=== PATIENT | female | born 1985 | race African-American/Black ===

== ENCOUNTER 2019-12-13 00:27 | Outpatient (CLI) | payer BC, SELFPAY ==
[2019-12-13 18:11] LABS: SARS-CoV-2 RNA PCR Negative
== END 2019-12-13 00:28 | disposition home or self-care (01) ==
LOC: ANHCOVIDDT 00:28
PROVIDERS: Visit Provider Surgery Plastic and Reconstructive Surgery
DX: Z01.812 Encounter for preprocedural laboratory examination (principal); Z11.59 Encounter for screening for other viral diseases
CPT/HCPCS: 87635; C9803; U0003

== ENCOUNTER 2019-12-16 01:35 | Day surgery (SDC) | payer BC, SELFPAY ==
[2019-12-01 14:23] VITALS: BMI 38.6
[2019-12-16] VITALS (8 sets, daily range): BP systolic 109–147; BP diastolic 66–86; PULSE 63–86; RESP 14–18; TEMP 36.2–36.4; O2SAT 99–100
--- NOTE | 2019-12-16 09:07 | WPDHPUPDATE1 ---
History and Physical Update Update Date/Time: 12/16/19 09:07 History and Physical has been reviewed, including an updated exam of the patient. There are NO changes in the patient's condition. Risks, benefits, and alternatives have been discussed and questions answered. Patient agrees to proceed with procedure.
[2019-12-16 09:16] LABS: Urine Cotinine NEGATIVE
[2019-12-16] MEDS: LACTATED RINGERS 1,000 ML 30 ML IV CONT ×2 (09:27→12:46)
--- NOTE | 2019-12-16 09:35 | WPDANESEPPF ---
Anes - Initial Pre Proc Eval Procedure: Operation Date: 12/16/19 10:45 Proposed Procedures p Bilateral Breast Reduction - Dustin Stone MD Date/Time: 12/16/19 09:35 Surgeon: Dustin Stone MD Pre Op Diagnosis: Macromastia Patient Data Age: 34 Gender: F Height: 5 ft 4 in Weight: 102.06 kg Allergies Allergy/AdvReac Type Severity Reaction Status Date / Time latex Allergy Mild RASH Verified 12/16/19 09:34 phenobarbital Allergy Unknown UNKNOWN Verified 12/16/19 09:34 tramadol Allergy Unknown ITCHY Verified 12/16/19 09:34 Home Medications Medication Instructions Recorded Confirmed Type pantoprazole 40 mg tablet,delayed 40 mg PO DAILY PRN tablet 09/03/19 12/01/19 History release fexofenadine [Nevin Allergy] 180 mg PO DAILY 12/01/19 12/01/19 History fluticasone propionate [Flonase 1 spray INTRANASAL DAILY 12/01/19 12/01/19 History Allergy Relief] docusate sodium 100 mg capsule 100 mg PO BID #14 cap 12/03/19 Rx hydrocodone 5 mg-acetaminophen 325 1 tablet PO Q6H PRN #15 tablet 12/03/19 12/03/19 Rx mg tablet ondansetron HCl 4 mg tablet 4 mg PO Q6H PRN #30 tablet 12/03/19 Rx Laboratory Tests 12/16/19 08:50 Cotinine Negative Patient hx anesthesia problems: none Family hx anesthesia problems: none PMFSH Surgical History Surgical History History of ovarian cystectomy 05/2014 Social History Social History Smoking status: Never smoker Substance use: never Living arrangements: with family Spiritual care concerns: No Anes - Eval Final PreProcedure Day of Procedure 12/16/19 09:35 Patient weight: obese Heart: regular rate and rhythm Lungs: clear to auscultation Airway: Mallampati scale class II Neurological: alert and oriented Last oral intake: >/= 8 hours ASA classification: III Emergent: no Anesthetic plan: proceed Anesthesia type and monitoring: general ETT and standard monitoring Informed Consent: The patient's anesthetic plan and its attendant risks and benefits were discussed with the patient/family/POA. Questions were solicited and answers provided to the satisfaction of the patient/family/POA.
--- NOTE | 2019-12-16 10:01 | PM.PROC ---
Procedure Note - Detailed Date of procedure: 12/16/19 Pre-op diagnosis: Macromastia Post-op diagnosis: same Procedure performed: Bilateral Reduction Mammaplasty Description of procedure: She is here today for bilateral breast reduction. Previously and again today the risks, benefits, alternatives were discussed in extensive detail. I wanted her to be very realistic about the risks involved as well as expectations. We discussed aftercare and what to monitor for. She understands we can never guarantee final breast size and there will always be asymmetry. I was very upfront and honest about the risks of sensation change and even nipple loss (). After hearing all her options for nipple/areola management (risks, benefits, alternatives) she has elected to proceed with free nipple graft. She understand there will not be sensation, there will be permanent color change, and can even be complete loss of the nipple/areola. Made sure answered all of her questions to her satisfaction today and consent was obtained. She was marked in the preoperative holding area with their verification. The patient was taken to the operating room placed supine on the operating table. Anesthesia was provided by anesthesiology. She was prepped and draped in a standard sterile fashion. A surgical time-out was taken. Stab incisions were made and I tumessed with a tumescent solution. I marked out the nipple-areolar complex at 42 mm. I then removed and defatted. NAC was placed in saline soaked gauze. I then removed the inferior portion of the breast as well as the central keel to get shape based on preoperative planning. At this point copiously irrigated with saline solution and verified a strict hemostasis. I reapproximated the pillars using a 2-0 PDS as well as along the IMF. I tailor tacked the breast into place with marquise. She was placed in a sitting position. I verified the nipple-areolar complex position based on preoperative markings, intraoperative measurements, and observation which were in full agreement. This nipple-areolar complex was marked at 42 mm in size. I then placed supine and de-epithelialized this. Nipple-areolar complex was inset with 5-0 Chromic and a tie over xeroform / cotton bolster with 3-0 Nylon. I closed the vertical incision with 3-0 Monocryl in the IMF with 3-0 stratafix. Then everything was closed using a running subcuticular 4-0 Monocryl followed by Steri-Strips. A dressing was placed followed by surgical bra. Patient was awoke and taken to PACU without difficulty. All instrument sponge counts were correct at the end of the case. Anesthesia: GLMA Surgeon: Dustin Stone MD Estimated blood loss (mL): 40 Drains: No Packing: No Pathology: yes (Bilateral breast tissue) Complications: No immediate complications Condition: stable Disposition: PACU Findings: Inverted T bilateral free nipple graft. Right: 1609 grams Left: 1760 grams.
[2019-12-16] MEDS: ceFAZolin 2 GM/D5W 50 ML 2 GM/50 ML BAG IVPB (10:03)
--- NOTE | 2019-12-16 12:35 | SUR.OPER ---
EBL:50cc
== END 2019-12-16 14:45 | disposition home or self-care (01) ==
PROVIDERS: PCP Physician Assistant; Visit Provider Surgery Plastic and Reconstructive Surgery
PROC: 0HBV0ZZ Excision of Bilateral Breast, Open Approach (ICD-10-PCS; CPT 19318; principal; 2019-12-16 10:45)
DX: N62 Hypertrophy of breast (principal); N60.32 Fibrosclerosis of left breast; N60.42 Mammary duct ectasia of left breast; N60.02 Solitary cyst of left breast; L30.8 Other specified dermatitis; E66.9 Obesity, unspecified; Z68.38 Body mass index [BMI] 38.0-38.9, adult; Z79.899 Other long term (current) drug therapy
CPT/HCPCS: 19318; 36415; 80307; 88305; 88307; A9270; J0171; J0330; J0690; J1100; J2250; J2405; J2704; J2710; J3010; J7120; L8000

== ENCOUNTER 2021-04-01 14:07 | Emergency (ER) | payer OTHER, SELFPAY ==
[2021-04-01 14:20] VITALS: BP 97/55; PULSE 91; RESP 16; TEMP 37.2; O2SAT 99
--- NOTE | 2021-04-01 14:31 | ED.URI ---
HPI - URI/Sore Throat General Chief Complaint: Upper Respiratory Infection Stated Complaint: Sinus Pain Time Seen by Provider: 04/01/21 14:52 Source: patient and RN notes reviewed Mode of arrival: ambulatory Limitations: no limitations History of Present Illness HPI Narrative: Referral female with history of allergies and sinus problems presents with concern for 2 to 3-week history of sinus pain, facial pain and pressure, jaws popping, ears feeling full. Reports dizziness and increased facial pain when she bends over. Reports she has been using Tylenol sinus, Benadryl, takes Nevin and Flonase daily. Reports mild pressure relief with the Tylenol Sinus. She denies fever, body aches, chills, sweats, cough. MD elicited complaint: nasal congestion and sinus pain Related Data Home Medications Medication Instructions Recorded Confirmed pantoprazole 40 mg tablet,delayed 40 mg PO DAILY PRN tablet 09/03/19 04/01/21 release fexofenadine [Envin Allergy] 180 mg PO DAILY 12/01/19 04/01/21 fluticasone propionate [Flonase 1 spray INTRANASAL DAILY 12/01/19 04/01/21 Allergy Relief] Allergies Allergy/AdvReac Type Severity Reaction Status Date / Time latex Allergy Mild RASH Verified 04/01/21 14:20 phenobarbital Allergy Unknown UNKNOWN Verified 04/01/21 14:20 tramadol Allergy Unknown ITCHY Verified 04/01/21 14:20 Review of Systems Review of Systems: CONSTITUTIONAL: Denies malaise, chills, sweats, or fever. EYES: Denies visual changes, redness, or discharge. ENT: Reports rhinorrhea, congestion, sinus pain, otalgia. Denies sore throat. CARDIOVASCULAR: Denies chest pain, palpitations, or edema. RESPIRATORY: Denies cough. Denies dyspnea. GASTROINTESTINAL: Denies abdominal pain, nausea, vomiting, diarrhea SKIN: Denies rash or itching. MUSCULOSKELETAL: Denies myalgia. NEUROLOGIC: Denies headache. All systems reviewed & are unremarkable except as noted in HPI and below PMFSH Surgical History Surgical History History of ovarian cystectomy 05/2014 Social History Social History Smoking status: Never smoker Substance use: never Spiritual care concerns: No Comments At time of signature, agree with nursing past medical, surgical, social and family history. There is no relevant family history pertinent to the presenting complaint Exam Narrative: GENERAL: Well-appearing, well-nourished, and in no acute distress. HEAD: Normocephalic EYES: PERRLA, conjunctivae clear ENT: Nares clear, turbinates edematous and erythematous, sinus tenderness. Mucous membranes moist. TM pearly arreaga with dull light reflex bilaterally; no tragal tenderness. Oropharynx not erythematous without lesions. Tonsils not enlarged and without exudate, no drooling, no hoarseness, no trismus, uvula midline. NECK: Supple. No lymphadenopathy CHEST: Clear to auscultation, breath sounds equal. No wheezing, rhonchi, rales, or stridor. No respiratory distress, speaks in full sentences. HEART: Regular rate and rhythm. No murmur heard. SKIN: Warm, dry, no rash. NEURO: Alert and oriented x3. PSYCH: Normal mood and affect Course Course Emergency Course: Patient is aware of diagnosis, understands and agrees to treatment plan. Anticipatory guidance given. Patient agrees to follow-up as directed and is aware of reasons to seek care at the emergency department. Portions of this record may have been created with voice recognition software Vital Signs Vital signs: Vital Signs Temperature 98.9 F 04/01/21 14:20 Pulse Rate 91 04/01/21 14:20 Respiratory Rate 16 04/01/21 14:20 Blood Pressure 97/55 L 04/01/21 14:20 Pulse Oximetry 99 04/01/21 14:20 Temperature 98.9 F 04/01/21 14:20 Pulse Rate 91 04/01/21 14:20 Respiratory Rate 16 04/01/21 14:20 Blood Pressure 97/55 L 04/01/21 14:20 Pulse Oximetry 99 04/01/21 14:20 Reviewed.
== END 2021-04-01 15:06 | disposition home or self-care (01) ==
PROVIDERS: Emergency Provider Nurse Practitioner
DX: J01.90 Acute sinusitis, unspecified (principal); J45.909 Unspecified asthma, uncomplicated; E28.2 Polycystic ovarian syndrome
CPT/HCPCS: 99213; G0463

== ENCOUNTER 2021-07-16 13:35 | Emergency (ER) | payer OTHER, SELFPAY ==
[2021-07-16 13:46] VITALS: BP 137/75; PULSE 100; RESP 20; TEMP 37.4; O2SAT 98
[2021-07-16 13:53] VITALS: BP 137/75; PULSE 100; RESP 20; TEMP 37.4; O2SAT 98
--- NOTE | 2021-07-16 13:54 | ED.GENADULT ---
HPI - General Adult General Chief complaint: Upper Respiratory Infection Stated complaint: Chest Congestion/Cough Time Seen by Provider: 07/16/21 13:56 Source: patient Mode of arrival: ambulatory Limitations: no limitations History of Present Illness HPI narrative: 36-year-old female patient presents to the [facility] with complaints of a cough x2 days with shortness of breath. Patient does have history of asthma. Patient states she did just diagnosed with COVID in May 2021. Patient is fully vaccinated against COVID. Patient states she has been using her inhaler at home but is still feeling short of breath. Related Data Home Medications Medication Instructions Recorded Confirmed pantoprazole 40 mg tablet,delayed 40 mg PO DAILY PRN tablet 09/03/19 07/16/21 release fexofenadine [Nevin Allergy] 180 mg PO DAILY 12/01/19 07/16/21 fluticasone propionate [Flonase 1 spray INTRANASAL DAILY 12/01/19 07/16/21 Allergy Relief] albuterol 90 mcg INHALATION Q4H PRN 07/16/21 07/16/21 vit [id number] 1 tablet PO DAILY 07/16/21 07/16/21 [Alive ] Allergies Allergy/AdvReac Type Severity Reaction Status Date / Time latex Allergy Mild RASH Verified 07/16/21 13:51 phenobarbital Allergy Unknown UNKNOWN Verified 07/16/21 13:51 tramadol Allergy Unknown ITCHY Verified 07/16/21 13:51 Review of Systems Review of Systems: CONSTITUTIONAL: Denies fever, chills, or sweats. EYES: Denies visual changes, redness, or discharge. ENT: Denies rhinorrhea, congestion, sore throat, or otalgia. CARDIOVASCULAR: Denies chest pain, palpitations, or edema. RESPIRATORY: Positive cough with dyspnea. GASTROINTESTINAL: Denies abdominal pain, nausea, vomiting, or diarrhea. GENITOURINARY: Denies dysuria or hematuria. SKIN: Denies rash or itching. MUSCULOSKELETAL: Denies back pain, joint pain, or myalgia. NEUROLOGIC: Denies headache, numbness, or weakness. PSYCHIATRIC: Denies anxiety or depression. [facility] Surgical History Surgical History History of ovarian cystectomy 05/2014 Social History Social History (Reviewed 03/12/22 @ 13:56 by [employer] Smoking status: Never smoker Substance use: never Spiritual care concerns: No Comments At the time of my signature I agree with nursing past medical history, surgical, social, and family history. There is no relevant family history pertinent to the presenting complaint. Exam Narrative: GENERAL: Well-appearing, well-nourished, and in no acute distress. HEAD: Normocephalic, atraumatic. EYES: PERRLA and EOMI. ENT: Nares with erythema and edema noted bilaterally, no rhinorrhea or epistaxis. Mucous membranes moist. NECK: Supple. No lymphadenopathy CHEST: Clear to auscultation. Patient appears to have slightly labored breathing talking in broken sentences. No tripoding noted. HEART: Regular rate and rhythm. No murmur heard. Normal peripheral pulses. ABDOMEN: Soft, nontender, nondistended, normal active bowel sounds. EXTREMITIES: Normal range of motion. No edema. SKIN: Warm, dry, no rash. NEURO: No focal deficits. Alert and oriented x3. Course Course Level of Care: Express Care Visit Reevaluation(s) Reevaluation #1: Patient states she is feeling much better after receiving the albuterol treatment. Discussed with patient I think she most likely has an asthma exacerbation or bronchitis therefore we will discharge her home with an oral steroid she needs to continue using her inhaler as needed for cough and shortness of breath. Patient verbalized understanding denies any other questions or concerns Date: 07/16/21 Time: 14:33 Vital Signs Vital signs: Vital Signs Temperature 37.4 C 07/16/21 13:46 Pulse Rate 100 07/16/21 13:46 Respiratory Rate 20 07/16/21 13:46 Blood Pressure 137/75 07/16/21 13:46 Pulse Oximetry 98 07/16/21 13:46 Temperature 37.4 C 07/16/21 13:53 Pulse Rate 100 07/16/21
[2021-07-16] MEDS: IPRATROPIUM BR 0.02% INH SOLN 0.5 MG/2.5 ML VIAL INHALATION (14:08)
[2021-07-16] MEDS: ALBUTEROL SULFATE NEB 2.5 MG/3 ML INH INHALATION (14:08)
[2021-07-16 14:28] VITALS: PULSE 108; RESP 14; O2SAT 98
== END 2021-07-16 14:35 | disposition home or self-care (01) ==
PROVIDERS: Emergency Provider Nurse Practitioner Family
DX: J40 Bronchitis, not specified as acute or chronic (principal); J45.31 Mild persistent asthma with (acute) exacerbation; Z86.16 Personal history of COVID-19
CPT/HCPCS: 99213; G0463

== ENCOUNTER 2024-09-17 11:14 | Outpatient (CLI) | payer OTHER, SELFPAY ==
--- NOTE | ~2024-09-17 | US_ITS ---
EXAMINATION: US OB /maternal detail DATE: 09/17/2024 11:52 INDICATION: survey TECHNIQUE: Multiple obstetric sonographic images performed. FINDINGS: No prior studies for comparison. There is a single living fetus in variable presentation. The placenta is posterior without placenta previa. Placental margin to the cervix is 3.2 cm. Cervical length 6.8 cm. Amniotic fluid volume is mcmillan bjectively normal. cardiac activity and movement is noted with a heart rate of 111 beats per minute. The following anatomy was identified as normal: 4 chamber heart 3 vessel cord cord insertion kidneys urinary bladder stomach spine diaphragm ventricles cisterna magna cerebellum The following biometric data were obtained: BPD: 52mm corresponds to gestational age 21 weeks 5 days. Head circumference: 187 mm corresponds to gestational age 21 weeks 0 days. Abdominal circumference: 164 mm corresponds to gestational age 21 weeks 3 days. Femur length: 36 mm corresponds to gestational age 21 weeks 3 days. Head circumference to abdominal circumference ratio: 1.14 (normal range for expected gestational age is 1.06-1.24). Estimated weight: 424 grams +/- 63 grams using Hadlock method, 76.3%. IMPRESSION: 1: Single living intrauterine with an estimated gestational age of 21weeks 3days by current ultrasound measurements, with an EDC of 01/25/2025 in variable presentation. 2. Normal survey. Reviewed, dictated and finalized at location A. IMPRESSION: 1: Single living intrauterine with an estimated gestational age of 21 weeks 3days by current ultrasound measurements, with an EDC of 01/25/2025 in deidre iable presentation. 2. Normal survey.
== END 2024-09-17 11:15 | disposition home or self-care (01) ==
LOC: MICIMG 11:15
PROVIDERS: PCP Nurse Practitioner Women's Health; Visit Provider Nurse Practitioner Women's Health
DX: Z36.9 Encounter for antenatal screening, unspecified (principal); Z3A.21 21 weeks gestation of pregnancy
CPT/HCPCS: 76805

== ENCOUNTER 2024-11-04 12:01 | Observation (INO) | payer OTHER, SELFPAY ==
[2024-11-04] VITALS (7 sets, daily range): BP systolic 102–114; BP diastolic 51–64; PULSE 71–81; TEMP 36.1; BMI 31.6
--- NOTE | 2024-11-04 12:01 | OBADM ---
This patient, Cheryl Ritter, admitted to the OB room OB Post 113 for observation. Patient/family oriented to hospital policies and general routines including ID bracelet, bed and alarms, visiting hours, pain management, procedures, bathroom and other care routines, personal items, smoking policy, room service/diet, and visiting hours. Patient/Family are encouraged to report perceived risks to care and to ask questions if they do not understand what they are told or what they should do.
--- OUTSIDE RECORDS SUMMARY | 2024-11-04 12:08 | XMS_ITS | Clinical Summary ---
Author Organization [facility] Address [address] [place] [address] Care Team Providers Care Barge Loader Name Role Phone Taurus Humphries MD Primary Care Provider [phone] Source Comments [facility],non-owned Affiliates and Associated Physician Practices is amultiple site organization consisting of ambulatory clinics and hospital sitesin [place], [place], [place] and [place]. This disclosure is being madepursuant to the Care Everywhere program and may not contain all information available regarding this patient. Last updated 18.[facility] Allergies Active Allergy Reactions Criticality Noted Date Comments Latex Itching Medium 08/05/2016 Gloves cause hands to dry out Phenobarbital Unknown 04/12/2009 Tramadol Itching Medium 11/13/2015 Medications * Be aware that medications may not be up to date on this document. Alwaysverify current medications with the patient. cyclobenzaprin e (Flexeril) 5 MG tablet Take 1 (one) tablet by mouth nightly as needed 12/27/19 22 Active fluticasone propionate (Flonase) 50 MCG/ACT nasal spray Ackerman 1 (one) spray to 2 (two) sprays into the nose once daily Active albuterol HFA (Proventil; Ventolin; Proair) 108 (90 Base) MCG/ACT inhaler Take 2 (two) puffs by mouth every 4 hours as needed 18 g 3 04/12/20 23 Active fexofenadine (Nevin) 60 MG tablet Take 1 (one) tablet by mouth once daily Active pantoprazole EC (Protonix) 40 MG tablet Take 1 (one) tablet by mouth once daily 90 tablet 4 11/13/19 24 Active docusate sodium (Colace) 100 MG capsule Take 1 (one) capsule by mouth 2 times daily as needed for Constipation (relief of difficult bowel movements) 11/20/19 24 Active Additional Information Patient not taking.Reported on 10/23/2024 Multiple Vitamins TABS Take 1 (one) tablet by mouth once daily Bariatric Active Calcium Carb-Cholecalc iferol (CALCIUM 500 + D PO) Take 1 tablet by mouth 3 times daily Active Vit-Fe Fumarate-FA ( VITAMINS PO) Take 1 tablet by mouth once daily Active adalimumab (Humira) 40 MG/0.8ML injection Inject 0.8 mL subcutaneously every 14 days 025 Discontin ued(List Clean-Up) Active Problems Problem Noted Date Diagnosed Date S/P laparoscopic sleeve gastrectomy 11/20/2023 PCOS (polycystic ovarian syndrome) 04/12/2023 Migraines 04/12/2023 Rheumatoid arthritis 04/12/2023 Overview (04/12/2023): Follows with Dr. Santos Female infertility associated with anovulation 0 10/25/2021 04/12/2023 Overview (04/12/2023): Note: Unchanged Migraine without aura, not intractable 7 04/12/2023 Mild intermittent asthma without complication 04/12/2023 Asthma 04/15/2014 04/12/2023 Estimated Date of Delivery Comme nts Yes 01/27/2025 Resolved Problems Problem Noted Date Diagnosed Date Resolved Date Migraines 04/12/2023 04/12/2023 Encounters Date Type Department Care Team Description 10/23/2024 9:40 AM CDT Office Visit [facility] - Family Medicine [address] [place] [address] [place] [phone] Taurus Humphries MD Rheumatoid arthritis involving shoulder, unspecified laterality, unspecified whether rheumatoid factor present (HCC) (Primary Dx) 10/23/2024 Travel from Last 3 Months Immunizations Immunization Administration Dates Next Due [employer] primary Monoval ent 12+ yr 0.3ml 05/28/2021 INFLUENZA VACCINE, QUADR. (F LUZONE; FLULAVAL; FLUARIX; AFLURIA QUADRIVALENT; 6MO+), 0.5 ML (IIV4) 02/08/2023,01/12/2022,04/14/2021 INFLUENZA VACCINE, TRIV. (FL UZONE; FLULAVAL; FLUARIX; AFLURIA TRIVALENT; 6MO+), 0.5 ML (IIV3) 02/04/2024 MMR VACCINE 05/04/2022 Family History Medical History Relation Name Comments Cancer - Thyroid Cousin Cancer - Lung Father heavy smoker Arthritis - Rheumatoid Mother Asthma Mother Diabetes; unknown type Mother High Cholesterol Mother Hypertension Mother Lupus Mother Medication dominik sherry Nephrolithiasis Mother Other Mother Fatty Liver Hypertension Sister 1 Nephrolithiasis Sister 1 Hypertension Sister 2 Thyroid Disease Sister 2 None Known half-brother 1 None Known half-brother 2 Relation Name Status Comments Cousin Alive Father Mother Alive Sister 1 Alive Sister 2 Alive half-brother 1 Alive half-brother 2 Alive Social History Tobacco Use Types Packs/Day Years Used Date Smoking Tobacco: Never Smokeless Tobacco: Never Tobacco Cessation:Counseling Given: Not Answered Alcohol Use Standard Drinks/Week Comments Not Currently 0 (1 standard drink = 0.6 oz pur e alcohol) less than monthly AUDIT-C Answer Date Recorded Q1: How often do you have a drink containing alc ohol? Monthly or less 11/20/2023 Q2: How many drinks containi ng alcohol do you have on a typical day when you are drinking? 1 or 2 11/20/2023 Frequency of Binge Drinking Not on file 11/04 Overall Financial Resource Strain (CARDIA) Answe r Date Recorded How hard is it for you to pa y for the very basics like food, housing, medical care, and heating? Not hard at all 11/20/2023 PHQ-2 Answer Date Recorded Patient Health Questionnaire-2 Score 0 10/23/2024 [facility] [place] - Occupational Stress Questionnaire Answer Date Recorded Do you feel stress - tense, restless, nervous, or anxious, or unable to sleep at night because your mind is troubled all the time - these days? Not at all 11/20/2023 Hunger Vital Sign Answer Date Recorded Within the past 12 months, y ou worried that your food would run out before you got the money to buy more. Never true 11/20/19 24 Within the past 12 months, t he food you bought just didn't last and you didn't have money to get more. Never true 11/20/2023 PRAPARE - Transportation Answer Date Re corded In the past 12 months, has l ack of transportation kept you from medical appointments or from getting medications? No 11/04 In the past 12 months, has l ack of transportation kept you from meetings, work, or from getting things needed for daily living? No 11/20/2023 Housing Stability Vital Sign Answer Bright e Recorded In the last 12 months, was t here a time when you were not able to pay the mortgage or rent on time? No 11/20/2023 In the last 12 months, how many places have you lived? 1 11/20/2023 In the last 12 months, was t here a time when you did not have a steady place to sleep or slept in a detention (including now)? No 11/20/2023 Education Answer Date Recorded What is the highest level of school you have completed or the highest degree you have received? Some college, no degree 04/12/2023 Estimated Date of Delivery Comme nts Yes 01/27/2025 Sex and Gender Information Value Date Recorded Sex Assigned at Not on file Legal Sex Female 2:08 PM CONSULTING SALES MANAGER Gender Identity Not on file Sexual Orientation Not on file Occupation Industry Job Start Date Job End Date Housekeeping Not on file Not on file Not on file Last Filed Vital Signs Vital Sign Reading Time Taken Comments Blood Pressure 108/78 10/23/2024 9:37 AM CDT Pulse 73 10/23/2024 9:37 AM CDT Temperature 36.7 C (98.1 F) 10/23/2024 9:37 AM CDT Respiratory Rate 18 10/23/2024 9:37 AM CDT Oxygen Saturation 99% 10/23/2024 9:3 7 AM CDT Inhaled Oxygen Concentration - - Weight 83.5 kg (184 lb) 10/23/2024 9:37 AM CDT patient gave a verbal Height 162.6 cm (5' 4.02) 10/23/2024 9 :37 AM CDT Body Mass Index 31.57 10/23/2024 9:37 AM CDT Plan of Treatment Upcoming Encounters Date Type Department Care Team (Late st Contact Info) Description 11/21/2024 10:00 AM CDT Video Visit [facility] [id number] [place] [address] Stephanie Maxwell, SMALL PIECE CUTTER-HOME ECONOMICS EXTENSION WORKER [address] [place], [place] [id number] 05/06/2025 10:20 AM CONSULTING SALES MANAGER Office Visit [facility] - Family Medicine [address] [place] [phone] [place] [address] [address] [place] [address] Health Maintenance Due Date Last Done Comments HEPATITIS B VACCINE (1 of 3 - 19+ 3-dose series) 2006 COVID-19 VACCINE ( season) 2024 05/28/2021, 11/12/2020, 10/22/2020 OB-ONE HOUR GLUCOSE 10/21/2024 OB-TDAP CURRENT 10/28/2024 OB-RHOGAM INJECTION 11/04/2024 Respiratory Syncytial Virus (RSV) Vaccine Pt: or over 60 yrs (1 - Risk 1-dose series) 01/05/2025 DTAP/TDAP/TD VACCINES (1 - Tdap) 01/23/2025 Postponed from 2006 (Patient Refused) PNEUMOCOCCAL VACCINE (1 of 2 - PCV) 10/23/2025 Postponed from 2006 (Patient Refused) PAP SMEAR 08/19/2026 08/20/2023 (Done Outside Per Patient), 09/13/2022 ZOSTER VACCINE (1 of 2) 2037 HEPATITIS C SCREENING Completed 04/12/2023 HIV SCREENING Completed 04/12/2023 INFLUENZA VACCINE Completed 02/04/2024, , 01/12/2022, Additional history exists DEPRESSION SCREENING Completed 10/23/2024, 07/23/2023, 04/12/2023 HIB VACCINE Aged Out No longer eligi ble based on patient's age to complete this topic HPV VACCINE Aged Out No longer eligi ble based on patient's age to complete this topic MENINGOCOCCAL (Group B) VACCINE SHARED DECISION-MAKING Aged Out No longer eligible based on patient's age to complete this topic MENINGOCOCCAL GROUPS A/C/Y/W VACCINE Aged Out No longer eligible based on patient's age to complete this topic Procedures Procedure Name Priority Date/Time Associated Diagnosis Comments LAB RESULTS ORDER 10/30/2024 LAB RESULTS ORDER 10/30/2024 LAB RESULTS ORDER 10/30/2024 LAB RESULTS ORDER 10/30/2024 LAB RESULTS ORDER 10/29/2024 LAB RESULTS ORDER 10/29/2024 LAB RESULTS ORDER 10/28/2024 LAB RESULTS ORDER 10/28/2024 LAB RESULTS ORDER 10/28/2024 LAB RESULTS ORDER 10/28/2024 HEPATITIS C ANTIBODY Routine 04/12/2023 9:13 AM CONSULTING SALES MANAGER Need for hepatitis C screening test HIV-1 HIV-2 ANTIBODY + HIV P24 AG PANEL Routine 04/12/2023 9:13 AM CONSULTING SALES MANAGER Encounter for screening for HIV from Last 3 Months or Most Recently Relevant to Health Maintenance Results * LAB RESULTS ORDER (10/30/2024) Only the most recent of10 resultswithin the time period is included. 10/30/2024 Narrative 10/30/2024 Ordered by an unspecified provider. us Scanned Document LAB - THERAPEUTIC DRUG MONITORI NG ORDERABLES Final Result * HIV-1 HIV-2 ANTIBODY + HIV P24 AG PANEL (04/12/2023 9:13 AM CONSULTING SALES MANAGER) HIV Screen 4th Generation w Reflex Non Reactive Non Reactive [facility] ACCOUNT BILL Comment: HIV Negative HIV-1/HIV-2 antibodies and HIV-1 p24 antigen were NOT detected. There is no laboratory evidence of HIV infection. FASTING Blood BLOOD SPECIMEN / Unknown 04/12/2023 9:13 AM CONSULTING SALES MANAGER 04/12/2023 Narrative Resulting Agency Comment Lab Testing performed at: [facility] [address] [id number] Taurus Humphries MD LAB - CHEMISTRY ORDERABLES Fi nal Result Performing Organization Address [facility] Co de Phone Number [facility] ACCOUNT BILL [address] [place] [address] * HEPATITIS C ANTIBODY (04/12/2023 9:13 AM CONSULTING SALES MANAGER) Hepatitis C Antibody Non Reactive Non Reactive [facility] ACCOUNT BILL Comment: Non Reactive - Antibodies to Hepatitis C virus (HCV) were no t detected, result does not exclude early acute HCV infection. FASTING Blood BLOOD SPECIMEN / Unknown 04/12/2023 9:13 AM CONSULTING SALES MANAGER 04/12/2023 Narrative Resulting Agency Comment Lab Testing performed at: [place] [address] [place] [id number] Taurus Humphries MD LAB - CHEMISTRY ORDERABLES Fi nal Result Performing Organization Address [facility] Co de Phone Number [facility] ACCOUNT BILL [address] [place] [address] from Last 3 Months or Most Recently Relevant to Health Maintenance Insurance [facility] Advance Directives * Full Code (Latest Code Status on File) Date Activated Date Inactivated Comments 11/20/2023 10:23 AM 11/21/2023 5:04 PM Care Teams Barge Loader Relationship Specialty [place] [id number] [place] [phone] PCP - General Family Medicine 04/12/23
--- OUTSIDE RECORDS SUMMARY | 2024-11-04 12:08 | XMS_ITS | Encounter Summary ---
Author Organization [facility] Address [address] [place] [address] Phone Care Team Providers Care Clinical Operations Consultant Name Role Phone Kei Sanchez Primary Care Provider U Yvonne Henry APRN, SURVEY OPERATIONS DIRECTOR Primary Care Provider Provider, None Primary Care Provider Unavailabl e Provider, Not On File Primary Care Provider Unav ailable Provider, None Primary Care Provider Unavailabl e Reason for Visit * Reason Comments Medication Refill Encounter Details Date Type Department Care Team (Late st Contact Info) Description 10/04/2021 Refill [facility] - Primary Care - [address] [place] [address] Kei Sanchez, PAC Medication Refill Social History Tobacco Use Types Packs/Day Years Used Date Smoking Tobacco: Never Smokeless Tobacco: Never Alcohol Use Standard Drinks/Week Comments Yes 0 (1 standard drink = 0.6 oz pur e alcohol) rarely PHQ-2 Answer Date Recorded Total Score - Questions 1-9 0 12/2020 Comments No Sex and Gender Information Value Date Recorded Sex Assigned at Not on file Legal Sex Female 9:28 PM CDT Gender Identity Not on file Sexual Orientation Not on file documented as of this encounter Miscellaneous Notes * Telephone Encounter - Alma Ortiz RN - 10/04/2021 1:21 PM CDT Duplicate request. documented in this encounter Plan of Treatment Not on file documented as of this encounter Visit Diagnoses Diagnosis Gastroesophageal reflux disease without esophagitis Esophageal reflux documented in this encounter Additional Health Concerns Infection Onset Date Last Indicated Resolved Time COVID - 19 04/25/2023 04/25/2023 05/05/2023 12:1 6 AM MANAGER INVESTMENT COVID - 19 09/03/2023 09/03/2023 09/03/2023 10:5 8 AM CDT Respiratory Rule-Out 09/03/2023 09/03/2023 024 11:00 AM CDT Assessment Noted Time PHQ-9 Depression Total Score: 0 05/14/19 21 11:00 AM MANAGER INVESTMENT documented as of this encounter Care Teams Clinical Operations Consultant Relationship Specialty Start Date End Date Kei Sanchez PAC PCP - General Physician [employer] Field Supervisor 10/30/19 11/14/21 Yvonne Whitman, LOCKSMITH, SURVEY OPERATIONS DIRECTOR [address] [place] [address] PCP - General Advanced Practice Nurse 11/15/21 Provider, None [place] PCP - General 04/25/23 06/10/23 Provider, Not On File [place] PCP - General 06/11/23 09/02/23 Provider, None [place] PCP - General 09/03/23 documented as of this encounter
--- OUTSIDE RECORDS SUMMARY | 2024-11-04 12:08 | XMS_ITS | Clinical Summary ---
Author Organization [facility] Address [address] [place] [address] Phone Care Team Providers Care Special Education Associate Name Role Phone Provider, None Primary Care Provider Unavailabl e Allergies Active Allergy Reactions Criticality Noted Date Comments Latex Itching Medium 08/05/2016 Gloves cause hands to dry out Phenobarbital Unknown 08/21/2015 Tramadol Itching Medium 11/13/2015 Medications fexofenadine (CHACHA) 180 MG Tablet Take 1 Tab by mouth daily. 90 Tab 0 Active fluticasone (FLONASE) 50 MCG/ACT Suspension 1-2 Sprays by Nasal route daily. Use in each nostril as directed. Active albuterol 108 (90 Base) MCG/ACT Aerosol SolutionIndicatio ns:Mild intermittent asthma without complication INHALE 2 PUFFS BY MOUTH EVERY 4 HOURS NEEDED FOR WHEEZING OR ASTHMA 8.5 g 1 2 Active pantoprazole (PROTONIX) 40 MG Tablet Delayed ResponseIndicatio ns:Gastroesophage al reflux disease without esophagitis TAKE 1 TABLET BY MOUTH EVERY DAY 30 TO 60 MINUTES BEFORE LARGEST MEAL 30 Tablet 2 Active cyclobenzaprine (FLEXERIL) 5 MG Tablet nightly as needed. 5mg-10mg 2 Active celecoxib (CeleBREX) 200 MG Capsule 2 times daily as needed. 2 Active Cholecalciferol (Vitamin D3) [address] UNIT Capsule Take 1 Capsule by mouth. 3 Active predniSONE (DELTASONE) 5 MG Tablet Take 5 mg by mouth as needed. Active Prasterone, DHEA, (DHEA PO) Take 100 mg by mouth daily. Active Calcium Carbonate (CALCIUM 500 PO) Take 500 mg by mouth 3 times daily. Active Vit-Fe Fumarate-FA ( VITAMIN PO) Take by mouth. Active Ferrous Sulfate (IRON PO) Take 45 mg by mouth. Active amoxicillin (AMOXIL) 875 MG TabletIndications :Acute non-recurrent pansinusitis Take 1 Tablet by mouth 2 times daily for 7 days. 14 Tablet 5 10/07/19 25 Active Problems Problem Noted Date Diagnosed Date Mild intermittent asthma without complication Migraine without aura, not intractable 7 Obesity 03/01/2017 Uterine leiomyoma 09/13/2016 Asthma 04/15/2014 Estimated Date of Delivery Comme nts Yes 01/27/2025 Encounters Date Type Department Care Team Description 09/29/2024 10:20 AM T Urgent Care Visit [facility] [address] [place] [address] Soha Shine, ASSEMBLER BONDING, REAL ESTATE JOB TITLES Acute non-recurrent pansinusitis (Primary Dx) Discharge Disposition: Discharged to home or Selfcare 09/29/2024 Travel 09/24/2024 9:55 AM T [facility] [address] [place] [address] Satnam Douglas PAC Sore throat (Primary Dx); Viral illness Discharge Disposition: Discharged to home or Selfcare 09/24/2024 Travel from Last 3 Months Immunizations Immunization Administration Dates Next Due Covid-19, Mrna, Lnp-s, Pf, 3 0 Mcg/0.3 Ml Dose ([employer]) 11/12/2020,10/22/2020 Influenza Vaccine greater than 3 yrs 01/12/2022 Influenza Vaccine, Quadrivalent, PF 02/08/2023,0 01/12/2022,04/14/2021 Influenza,Split Virus,Trivalent,Injectable,PF 02/04/2024 MMR Vaccine 05/04/2022 Family History Medical History Relation Name Comments Cancer Father lung- smoking h x Asthma Mother Diabetes Mother Hypertension Mother Kidney Stones Mother Hypertension Sister 1 Kidney Stones Sister 1 Thyroid Disease Sister 2 Relation Name Status Comments Father Mother Alive Sister 1 Alive Sister 2 Alive Social History Tobacco Use Types Packs/Day Years Used Date Smoking Tobacco: Never Smokeless Tobacco: Never Tobacco Cessation:Counseling Given: Not Answered Alcohol Use Standard Drinks/Week Comments Not Currently 0 (1 standard drink = 0.6 oz pur e alcohol) rarely PHQ-2 Answer Date Recorded Total Score - Questions 1-9 0 12/2020 Estimated Date of Delivery Comme nts Yes 01/27/2025 Sex and Gender Information Value Date Recorded Sex Assigned at Not on file Legal Sex Female 9:28 PM CDT Gender Identity Not on file Sexual Orientation Not on file Last Filed Vital Signs Vital Sign Reading Time Taken Comments Blood Pressure 110/60 09/29/2024 10:23 AM CDT Pulse 88 09/29/2024 10:23 AM CDT Temperature 36.4 C (97.5 F) 09/29/2024 10:23 AM CDT Respiratory Rate 14 09/29/2024 10:23 AM CDT Oxygen Saturation 99% 09/29/2024 10:23 AM CDT Inhaled Oxygen Concentration - - Weight 103.4 kg (228 lb) 09/03/2023 10:39 AM CDT Height 162.6 cm (5' 4) 06/11/2023 1:12 PM MANAGER CARDIOVASCULAR Body Mass Index 39.14 06/11/2023 1:12 PM MANAGER CARDIOVASCULAR Plan of Treatment Health Maintenance Due Date Last Done Comments TdaP Immunization 1987 Human Papillomavirus (HPV) Immunization (1 - 3-dose series) 2002 Hepatitis B Immunization (1 of 3 - 19+ 3-dose series) 2006 Pneumococcal Immunization Combined (1 of 2 - PCV) 2006 Pap Smear 01/25/2008 Cervical Cancer Screening (CCS) 2017 HPV/Cotest 2017 SARS-COV-2 Immunization ( season) 2024 05/28/2021, 11/12/2020, 10/22/2020 Hepatitis C Virus (HCV) Screening 04/12/2024 04/12/2023 Respiratory Syncytial Virus (RSV) Immunization (Adult) (1 - Risk 1-dose series) 01/05/2025 Immunochemical Fecal Occult Blood 01/25/2032 03/01/2017 Colonoscopy 05/30/2032 05/30/2022 Colorectal Cancer Screening 05/30/2032 Influenza Immunization Completed , 02/08/2023, 01/12/2022, Additional history exists Meningococcal Immunization (ACWY) Aged Out No longer eligible based on patient's age to complete this topic Rotavirus Immunization Aged Out No lo nger eligible based on patient's age to complete this topic Procedures Procedure Name Priority Date/Time Associated Diagnosis Comments POC GROUP A STREP BY MOLECULAR Routine 09/24/2024 10:12 AM CDT Sore throat POCT STOOL, OCCULT BLOOD X 1 SCREEN Routine 03/01/2017 2:30 PM CDT Blood in stool from Last 3 Months or Most Recently Relevant to Health Maintenance Results * POC GROUP A STREP BY MOLECULAR (09/24/2024 10:12 AM CDT) STREP A DNA Negative Negative, Invalid PROCEDURE CONTROL Valid Swab 09/24/2024 10:1 2 AM CDT us Satnam Douglas PAC POINT OF CARE TESTING (MANUAL ) Final Result * POCT STOOL, OCCULT BLOOD X 1 SCREEN (03/01/2017 2:30 PM CDT) POC FECAL OCCULT BLOOD Negative POC FECAL OCCULT BLOOD CONTROL Stamping Press Operator Pass 03/01/2017 2:30 PM CDT us Nerissa Yang PAC POINT OF CARE TESTING (MANU AL) Final Result from Last 3 Months or Most Recently Relevant to Health Maintenance Insurance [facility] Care Teams Special Education Associate Relationship Specialty Start Date End Date Provider, None MARCIE PCP - General 09/03/23
[2024-11-04 12:37] LABS: Add Urine Microscopic? YES; Appearance Urine Clear (Clear); Glucose Urine UA Negative (Negative); Leukocyte Esterase Ur Trace LEU/UL (Negative); Nitrate Urine Negative (Negative); Non Pathogenic Casts 0-2; Specific Grav Ur 1.014 (1.001-1.035)
[2024-11-04] MEDS: ONDANSETRON HCL ODT 4 MG TABLET PO (13:52)
--- NOTE | 2024-11-05 14:42 | PM.OBTRLD ---
OB - Triage/Final Diagnosis Visit Information Reason for evaluation: other (elevated blood pressure) Comments/Additional reasons for admission: I have assessed the risk for this patient, Cheryl Ritter, and determined that she would benefit from observation care. Evaluation Laboratory results: Laboratory Tests 11/04/24 12:20 Urine Color Yellow Urine Appearance Clear Urine pH 6.0 Ur Specific [place] 1.014 Urine Protein Negative Urine Glucose (UA) Negative Urine Ketones Negative Ur Blood (Man) Negative Urine Nitrate Negative Urine Bilirubin Negative Urine Urobilinogen 0.2 Ur Leukocyte Esterase Trace H Urine RBC 0-2 Urine WBC 6-10 H Ur Squamous Epith Cells Occasional Urine Bacteria None seen Urine Casts 0-2
== END 2024-11-04 13:55 | disposition home or self-care (01) ==
PROVIDERS: Admitting Provider Obstetrics & Gynecology; PCP Nurse Practitioner Women's Health; Visit Provider Obstetrics & Gynecology
DX: O16.3 Unspecified maternal hypertension, third trimester (principal); Z3A.28 28 weeks gestation of pregnancy
CPT/HCPCS: 81001; 87086; A9270; G0378; G0379

== ENCOUNTER 2024-11-13 14:07 | Outpatient (CLI) | payer OTHER, SELFPAY ==
--- NOTE | ~2024-11-13 | US_ITS ---
EXAMINATION: US OB follow up DATE: 11/13/2024 14:43 INDICATION: Estimated size greater than expected for estimated gestational age. TECHNIQUE: Real-time ultrasound of the pelvis was performed. The interpreting radiologist was not pre sent for the study. COMPARISON: None. FINDINGS: There is a single living fetus in vertex presentation. The placenta is posterior. The placenta does not appear low-lying however the caudal margin and the cervix are both partially obscured by the feta l skull. heart rate is 122 beats per minute (bpm). The amniotic fluid index is 12.0 cm, which is normal. (5th%-95%: 9.2-23.1 cm at 29 weeks estimated gestational age). The following biometric data were obtained: BPD: 7.5 cm -> 30 weeks 1 days Head circumference: 26.8 cm -> 29 weeks 2 days Abdominal circumference: 24.7 cm -> 29 weeks 0 days Femur length: 5.5 cm -> 29 weeks 1 days These measurements are concordant. Head circumference to abdominal circumference ratio: 1.09 (normal range 0.98-1.20). Estimated weight: 1341 g (+/-) 201 g or 2 lbs. 15 oz. (+/-) 7 oz. IMPRESSION: 1. Single living fetus in vertex presentation with heart rate of 122 bpm. 2. Normal amniotic fluid index measuring 12.0 cm. 3. Estimated weight is 23rd percentile by Hadlock criteria when 01/25/2025 is used as the estima david date of delivery (BARBARA). Please correlate with clinical information or earlier ultrasounds for mos t accurate BARBARA. Reviewed, dictated and finalized at location A. IMPRESSION: 1. Single living fetus in vertex presentation with heart rate of 122 bpm. 2. Normal amniotic fluid index measuring 12.0 cm. 3. Estimated weight is 23rd percentile by Hadlock criteria when 01/25/2025 is used as the estimated date of delivery (BARBARA). Please correlate with clinica l information or earlier ultrasounds for most accurate BARBARA.
== END 2024-11-13 14:08 | disposition home or self-care (01) ==
PROVIDERS: PCP Nurse Practitioner Women's Health; Visit Provider Obstetrics & Gynecology
DX: O36.63X0 Maternal care for excessive fetal growth, third trimester, not applicable or unspecified (principal); Z3A.00 Weeks of gestation of pregnancy not specified
CPT/HCPCS: 76816